=== PATIENT | female | born 1945 | race Caucasian/White ===

== ENCOUNTER 2019-04-30 15:08 | Observation (INO) ==
[2019-04-30] MEDS ORDERED: Naloxone 0.4 MG/ML INJ IVP PRN (17:53)
[2019-04-30] MEDS ORDERED: Ketorolac 15 MG/ML VIAL IVP PRN (17:56)
[2019-04-30 18:31] LABS: Basophils % 0.3 %; Eosinophils % 0.2 %; Hematocrit 40.3 % (35.3-44.9); Hemoglobin 13.4 g/dL (11.5-15.4); Immature Granulocytes % 0.4 % (0-4); Lymphocytes % 7.3 %; Mean Corpuscular HGB Conc 33.3 g/dL (31.6-35.5); Mean Corpuscular Hemoglobin 28.9 pg (28.0-33.3); Monocytes # 0.6 K/mcL (0.0-1.3); Platelet Count 163 K/mcL (140-400); Red Blood Count 4.63 M/mcL (3.82-4.97); Red Cell Distribution Width 12.7 % (11.5-14.5); Segmented Neutrophils % 87.8 %; White Blood Count 13.7 K/mcL (4.3-11.1)
[2019-04-30 18:42] LABS: Estimated Average Glucose 301 mg/dl
[2019-04-30 18:53] LABS: BUN/Creatinine Ratio 35 (6-26); Blood Urea Nitrogen 22 mg/dL (8-23); Calcium 8.7 mg/dL (8.6-10.3); Carbon Dioxide 25 mEq/L (23-29); Chloride 99 mEq/L (98-107); Glucose 421 mg/dL (70-105); Osmolality,Calculated 299 (280-300); Potassium 4.3 mEq/L (3.5-5.1); Sodium 134 mEq/L (136-145); eGFR For African Americans > 60 (> 60); eGFR For Non-African Americans > 60 (> 60)
[2019-04-30] MEDS ORDERED: *HR* Dextrose 50 % in Water (Syg) 50 ML SYRINGE IVP PRN (19:46)
[2019-04-30] MEDS ORDERED: D5% in Water 1,000 ML IVC PRN (19:46)
[2019-04-30] MEDS ORDERED: Dextrose Gel 15 GM/37.5 ML TUBE PO PRN ×2 (19:46)
[2019-04-30] MEDS: Insulin LISPRO 300 UNITS/3 ML VIAL SQ SCH (20:44)
[2019-04-30] MEDS: Acetaminophen 325 MG TABLET PO SCH ×2 (20:45→23:24)
[2019-04-30] MEDS ORDERED: Insulin LISPRO 300 UNITS/3 ML VIAL SQ SCH (21:00)
[2019-04-30] MEDS ORDERED: Insulin DETEMIR 100 UNIT/ML X5UNITS SQ SCH (21:18)
[2019-04-30] MEDS: Nystatin POWDER 30 GM BOTTLE TP SCH (21:39)
[2019-04-30 23:18] LABS: Bilirubin,Urine Negative (Negative); Blood,Urine Moderate (Negative); Clarity,Urine Turbid (Clear); Color,Urine Yellow (Yellow); Glucose,Urine (UA) >=1000 mg/dL (Normal); Ketones,Urine Trace mg/dL (Negative); Leukocyte Esterase,Urine Small (Negative); Nitrite,Urine Positive (Negative); Protein,Urine Trace mg/dL (Neg-Trace); Specific Gravity,Urine > 1.030 (1.010-1.025); Urobilinogen,Urine Normal (Normal)
[2019-04-30 23:19] LABS: Bacteria,Urine Many per hpf (None-Few); Hyaline Casts,Urine None Seen per lpf (None-Few); RBC,Urine 30-50 per hpf (0-3); Squamous Epithelial Cell,Urine Many per lpf (None-Few); WBC,Urine TNTC per hpf (0-3)
[2019-04-30 23:32] LABS: Yeast,Urine Few per hpf (None Seen)
[2019-05-01] MEDS ORDERED: tiZANidine 4 MG TABLET PO ONE ×2 (02:41→23:30)
[2019-05-01] MEDS ORDERED: Insulin Human Regular 10 UNIT in 0.9 % Sodium Chloride 10 ML IV ONE (02:42)
[2019-05-01] MEDS ORDERED: Ondansetron 4 MG/2 ML VIAL IVP PRN ×3 (03:42→16:57)
[2019-05-01 05:45] LABS: Basophils % 0.3 %; Eosinophils # 0.1 K/mcL (0.0-0.6); Eosinophils % 1.4 %; Hematocrit 37.1 % (35.3-44.9); Hemoglobin 12.2 g/dL (11.5-15.4); Immature Granulocytes % 0.3 % (0-4); Lymphocytes % 22.9 %; Mean Corpuscular HGB Conc 32.9 g/dL (31.6-35.5); Mean Corpuscular Hemoglobin 28.9 pg (28.0-33.3); Mean Corpuscular Volume 87.9 fL (83.0-100.0); Mean Platelet Volume 13.6 fL (9.4-12.4); Monocytes # 0.9 K/mcL (0.0-1.3); Neutrophils # 5.7 K/mcL (1.6-8.9); Platelet Count 163 K/mcL (140-400); Red Blood Count 4.22 M/mcL (3.82-4.97); Red Cell Distribution Width 12.9 % (11.5-14.5); Segmented Neutrophils % 65.1 %; White Blood Count 8.7 K/mcL (4.3-11.1)
[2019-05-01] MEDS: Acetaminophen 325 MG TABLET PO SCH ×4 (06:03→22:59)
[2019-05-01 06:06] LABS: Alanine Aminotransferase 13 Units/L (7-52); Albumin 3.4 g/dL (3.5-5.7); Albumin/Globulin Ratio 1.1 (1.1-2.2); Alkaline Phosphatase 66 Units/L (34-104); Aspartate Amino Transferase 13 Units/L (13-39); BUN/Creatinine Ratio 27 (6-26); Bilirubin,Total 0.4 mg/dL (0.3-1.0); Blood Urea Nitrogen 24 mg/dL (8-23); Calcium 8.6 mg/dL (8.6-10.3); Carbon Dioxide 28 mEq/L (23-29); Chloride 98 mEq/L (98-107); Glucose 273 mg/dL (70-105); Osmolality,Calculated 296 (280-300); Potassium 3.8 mEq/L (3.5-5.1); Sodium 136 mEq/L (136-145); Total Protein 6.4 g/dL (6.4-8.9); eGFR For African Americans > 60 (> 60); eGFR For Non-African Americans > 60 (> 60)
[2019-05-01] MEDS: Insulin LISPRO 300 UNITS/3 ML VIAL SQ SCH ×3 (08:04→20:31)
[2019-05-01] MEDS: Nystatin POWDER 30 GM BOTTLE TP SCH ×2 (08:10→20:33)
[2019-05-01] MEDS ORDERED: Insulin DETEMIR 100 UNIT/ML X5UNITS SQ ONE (08:36)
[2019-05-01] MEDS ORDERED: Famotidine 20 MG/2 ML VIAL ONE (13:29)
[2019-05-01] MEDS ORDERED: Acetaminophen IV 1,000 MG/100 ML INFUS..BTL ONE (13:29)
[2019-05-01] MEDS ORDERED: Ethanol\\Acetic Acid\\Na Ace\\Ben 1,000 ML IRRIG.SOLN IR ONE (13:59)
[2019-05-01] MEDS ORDERED: Lidocaine HCL 4 ML Topical Solution (Laryng-O-Jet Kit Sterile Pak) TP ONE (14:27)
[2019-05-01] MEDS ORDERED: Lidocaine -MPF 2% 2 ML VIAL ONE (14:27)
[2019-05-01] MEDS ORDERED: Ondansetron 4 MG/2 ML VIAL ONE (14:27)
[2019-05-01] MEDS ORDERED: *HR* Propofol 200 MG/20 ML VIAL IVP ONE (14:27)
[2019-05-01] MEDS ORDERED: *HR* Succinylcholine 200 MG/10 ML VIAL IVP ONE (14:27)
[2019-05-01] MEDS ORDERED: *HR* FentaNYL (PF) 100 MCG/2 ML VIAL ONE (14:27)
[2019-05-01] MEDS ORDERED: Dexamethasone 4 MG/ML VIAL ONE (14:27)
[2019-05-01] MEDS ORDERED: EPHEDrine 50 MG/ML VIAL ONE (14:31)
[2019-05-01 16:47] LABS: Hematocrit 35.6 % (35.3-44.9); Hemoglobin 12.3 g/dL (11.5-15.4)
[2019-05-01] MEDS ORDERED: *HR* Dextrose 50 % in Water (Syg) 50 ML SYRINGE IVP PRN (16:57)
[2019-05-01] MEDS ORDERED: MOM Conc 10 ML UD.LIQ PO PRN (16:57)
[2019-05-01] MEDS ORDERED: Temazepam 15 MG CAPSULE PO PRN (16:57)
[2019-05-01] MEDS ORDERED: D5% in Water 1,000 ML IVC PRN (16:57)
[2019-05-01] MEDS ORDERED: Naloxone 0.4 MG/ML INJ IVP PRN (16:57)
[2019-05-01] MEDS ORDERED: Dextrose Gel 15 GM/37.5 ML TUBE PO PRN ×2 (16:57)
[2019-05-01] MEDS ORDERED: Sennosides 8.6 MG TABLET PO PRN (16:57)
[2019-05-01] MEDS ORDERED: Insulin DETEMIR 100 UNIT/ML X5UNITS SQ SCH (21:00)
[2019-05-02] MEDS: *HR* HYDROcodone/Acet 5/325 mg TABLET PO PRN ×2 (03:27→23:31)
[2019-05-02] MEDS: Ringers Solution, Lactated 1,000 ML IVC SCH (03:28)
[2019-05-02] MEDS: Acetaminophen 325 MG TABLET PO SCH ×3 (06:08→17:43)
[2019-05-02] MEDS: Nystatin POWDER 30 GM BOTTLE TP SCH ×3 (07:55→20:29)
[2019-05-02] MEDS: Insulin LISPRO 300 UNITS/3 ML VIAL SQ SCH ×5 (07:55→20:28)
[2019-05-02 14:02] LABS: Hematocrit 34.3 % (35.3-44.9); Hemoglobin 11.5 g/dL (11.5-15.4)
[2019-05-02 14:22] LABS: BUN/Creatinine Ratio 37 (6-26); Blood Urea Nitrogen 25 mg/dL (8-23); Calcium 8.1 mg/dL (8.6-10.3); Carbon Dioxide 26 mEq/L (23-29); Chloride 98 mEq/L (98-107); Glucose 402 mg/dL (70-105); Osmolality,Calculated 295 (280-300); Sodium 132 mEq/L (136-145); eGFR For African Americans > 60 (> 60); eGFR For Non-African Americans > 60 (> 60)
[2019-05-02] MEDS ORDERED: Insulin DETEMIR 100 UNIT/ML X5UNITS SQ SCH (21:00)
[2019-05-03 01:38] LABS: Hematocrit 34.9 % (35.3-44.9); Hemoglobin 11.8 g/dL (11.5-15.4)
[2019-05-03 01:55] LABS: BUN/Creatinine Ratio 36 (6-26); Blood Urea Nitrogen 17 mg/dL (8-23); Calcium 8.3 mg/dL (8.6-10.3); Carbon Dioxide 25 mEq/L (23-29); Chloride 102 mEq/L (98-107); Glucose 211 mg/dL (70-105); Osmolality,Calculated 286 (280-300); Potassium 4.1 mEq/L (3.5-5.1); Sodium 134 mEq/L (136-145); eGFR For African Americans > 60 (> 60); eGFR For Non-African Americans > 60 (> 60)
[2019-05-03] MEDS: levoFLOXacin 750 MG/150 ML 750 MG/150 ML BAG IVPB SCH (06:06)
[2019-05-03 07:17] LABS: Hematocrit 35.5 % (35.3-44.9); Hemoglobin 12.1 g/dL (11.5-15.4); Mean Corpuscular HGB Conc 34.1 g/dL (31.6-35.5); Mean Corpuscular Hemoglobin 28.9 pg (28.0-33.3); Mean Corpuscular Volume 84.9 fL (83.0-100.0); Mean Platelet Volume 13.1 fL (9.4-12.4); Platelet Count 137 K/mcL (140-400); Red Blood Count 4.18 M/mcL (3.82-4.97); Red Cell Distribution Width 13.1 % (11.5-14.5); White Blood Count 7.9 K/mcL (4.3-11.1)
[2019-05-03] MEDS: Nystatin POWDER 30 GM BOTTLE TP SCH ×3 (07:51→21:49)
[2019-05-03] MEDS: *HR* Metformin 500 MG TABLET PO SCH ×2 (07:51→21:42)
[2019-05-03] MEDS: Insulin LISPRO 300 UNITS/3 ML VIAL SQ SCH ×7 (07:51→21:49)
[2019-05-03] MEDS ORDERED: Fluconazole 100 MG TABLET PO SCH ×3 (09:00→13:07)
[2019-05-03] MEDS: Ringers Solution, Lactated 1,000 ML IVC SCH ×2 (19:49→22:28)
[2019-05-03] MEDS: Insulin DETEMIR 100 UNIT/ML X5UNITS SQ SCH (21:43)
[2019-05-04] MEDS: levoFLOXacin 750 MG/150 ML 750 MG/150 ML BAG IVPB SCH (08:13)
[2019-05-04] MEDS: Insulin LISPRO 300 UNITS/3 ML VIAL SQ SCH ×7 (08:14→21:02)
[2019-05-04] MEDS: *HR* Metformin 500 MG TABLET PO SCH ×2 (08:14→20:13)
[2019-05-04] MEDS: *HR* HYDROcodone/Acet 5/325 mg TABLET PO PRN ×2 (08:17→21:00)
[2019-05-04] MEDS: Nystatin POWDER 30 GM BOTTLE TP SCH ×3 (08:19→21:07)
[2019-05-04] MEDS: Insulin DETEMIR 100 UNIT/ML X5UNITS SQ SCH (20:14)
[2019-05-05 05:58] LABS: Hemoglobin 11.2 g/dL (11.5-15.4); Mean Corpuscular HGB Conc 32.9 g/dL (31.6-35.5); Mean Corpuscular Hemoglobin 28.6 pg (28.0-33.3); Mean Corpuscular Volume 86.7 fL (83.0-100.0); Mean Platelet Volume 13.2 fL (9.4-12.4); Platelet Count 143 K/mcL (140-400); Red Blood Count 3.92 M/mcL (3.82-4.97); Red Cell Distribution Width 13.2 % (11.5-14.5); White Blood Count 8.9 K/mcL (4.3-11.1)
[2019-05-05 06:15] LABS: BUN/Creatinine Ratio 39 (6-26); Blood Urea Nitrogen 19 mg/dL (8-23); Calcium 8.3 mg/dL (8.6-10.3); Carbon Dioxide 27 mEq/L (23-29); Chloride 99 mEq/L (98-107); Glucose 265 mg/dL (70-105); Osmolality,Calculated 290 (280-300); Sodium 134 mEq/L (136-145); eGFR For African Americans > 60 (> 60); eGFR For Non-African Americans > 60 (> 60)
[2019-05-05] MEDS: levoFLOXacin 750 MG/150 ML 750 MG/150 ML BAG IVPB SCH (08:55)
[2019-05-05] MEDS: *HR* Metformin 500 MG TABLET PO SCH ×2 (08:56→23:40)
[2019-05-05] MEDS: Insulin LISPRO 300 UNITS/3 ML VIAL SQ SCH ×7 (08:59→23:40)
[2019-05-05] MEDS: Nystatin POWDER 30 GM BOTTLE TP SCH ×3 (09:08→23:40)
[2019-05-05] MEDS ORDERED: Ondansetron ODT 4 MG TAB.RAPDIS SL PRN (13:20)
[2019-05-05] MEDS: *HR* OxyCODONE/APAP 5/325 TABLET PO PRN (16:32)
[2019-05-05] MEDS: Insulin DETEMIR 100 UNIT/ML X5UNITS SQ SCH (23:40)
[2019-05-06 06:27] LABS: Hematocrit 36.5 % (35.3-44.9); Mean Corpuscular HGB Conc 32.9 g/dL (31.6-35.5); Mean Corpuscular Hemoglobin 28.2 pg (28.0-33.3); Mean Corpuscular Volume 85.7 fL (83.0-100.0); Mean Platelet Volume 13.5 fL (9.4-12.4); Platelet Count 162 K/mcL (140-400); Red Blood Count 4.26 M/mcL (3.82-4.97); Red Cell Distribution Width 13.1 % (11.5-14.5); White Blood Count 8.5 K/mcL (4.3-11.1)
[2019-05-06 06:53] LABS: BUN/Creatinine Ratio 36 (6-26); Blood Urea Nitrogen 19 mg/dL (8-23); Calcium 8.4 mg/dL (8.6-10.3); Carbon Dioxide 25 mEq/L (23-29); Chloride 100 mEq/L (98-107); Glucose 272 mg/dL (70-105); Osmolality,Calculated 290 (280-300); Potassium 4.2 mEq/L (3.5-5.1); Sodium 134 mEq/L (136-145); eGFR For African Americans > 60 (> 60); eGFR For Non-African Americans > 60 (> 60)
[2019-05-06] MEDS: Insulin LISPRO 300 UNITS/3 ML VIAL SQ SCH ×4 (07:46→11:29)
[2019-05-06] MEDS: *HR* Metformin 500 MG TABLET PO SCH (07:46)
[2019-05-06] MEDS ORDERED: levoFLOXacin 750 MG TABLET PO SCH (09:00)
[2019-05-06] MEDS ORDERED: *HR* Pioglitazone 15 MG TABLET PO SCH (09:00)
[2019-05-06] MEDS: *HR* OxyCODONE/APAP 5/325 TABLET PO PRN (10:12)
[2019-05-06] MEDS ORDERED: Ondansetron 4 MG/2 ML VIAL IVP PRN (11:00)
[2019-05-06 11:27] VITALS: BP 152/84
== END 2019-05-06 16:26 ==
LOC: 3NENU → SUATTDRO 18:03
PROVIDERS: ADMIT Internal Medicine; ATTEND Internal Medicine